=== PATIENT | male | born 1960 | race Hispanic/Latino ===

== ENCOUNTER 2023-02-24 14:42 | Emergency (ER) | payer MEDICAID ==
[~2023-02-24] VITALS: Ht 172.7 cm; Wt 99.8 kg
[2023-02-24 15:55] LABS: CRP QUANTITATIVE 59.2 mg/L (0.00-9.0); URIC ACID 4.8 mg/dL (2.6-7.2)
[2023-02-24 18:27] LABS: BASOPHILS # (AUTO) 0.08 K/uL (0.00-0.20); BASOPHILS % (AUTO) 0.9 % (0.0-5.0); EOSINOPHILS # (AUTO) 0.33 K/uL (0.00-0.70); EOSINOPHILS % (AUTO) 3.7 % (0.0-8.0); HEMATOCRIT 36.1 % (42-54); LYMPHOCYTES # (AUTO) 1.7 K/uL (1.0-4.8); MEAN CORPUSCULAR HGB CONC 35.2 g/dL (32.0-36.0); MEAN CORPUSCULAR VOLUME 90.9 fL (79-99); MONOCYTES # (AUTO) 1.2 K/uL (0.1-1.0); MONOCYTES % (AUTO) 13.9 % (3.0-13.0); NEUTROPHILS # (AUTO) 5.5 K/uL (1.8-7.7); NEUTROPHILS % (AUTO) 61.4 % (40.0-77.0); PLATELET COUNT (AUTO) 307 K/uL (130-400); RED BLOOD CELL COUNT(AUTO) 3.97 MIL/uL (4.50-6.20); RED CELL DISTRIBUTION WIDTH 11.7 % (11.0-15.5); WHITE BLOOD COUNT (AUTO) 8.9 K/uL (4.8-10.8)
[2023-02-24 19:47] LABS: CREATININE 0.5 mg/dL (0.5-1.5); POTASSIUM 4.2 mmol/L (3.5-5.1)
[2023-02-24 19:51] LABS: ALBUMIN 3.1 g/dL (3.5-5.0); BILIRUBIN,TOTAL 0.6 mg/dL (0.2-1.0); TOTAL PROTEIN, SERUM 8.5 g/dL (6.0-8.3)
[2023-02-24] MEDS ORDERED: PRED20TA3 PO (20:19)
[2023-02-24] MEDS ORDERED: PREDNISONE 20 MG TABLET PO ONE (20:30)
[2023-02-24] MEDS ORDERED: ONDANSETRON ODT 4MG TAB SL ONE (20:30)
[2023-02-24] MEDS ORDERED: HYDROCODONE/ACETAMINOPHEN 5/325 MG TAB PO ONE (20:30)
[2023-02-24] MEDS ORDERED: IBUPROFEN 600 MG TABLET PO ONE (20:30)
[2023-02-24 21:53] VITALS: BP 138/85; PULSE 88; RESP 16; O2SAT 98
== END 2023-02-24 21:59 | disposition home or self-care (01) ==
LOC: EDH 14:42
DX: M17.11 Unilateral primary osteoarthritis, right knee (principal); I10 Essential (primary) hypertension
CPT/HCPCS: 36415; 73562; 80053; 83605; 84550; 85025; 85651; 86140; 87040

== ENCOUNTER 2024-10-09 06:42 | Day surgery (SDC) | payer MEDICAID ==
[2024-10-09] VITALS (10 sets, daily range): BP systolic 121–160; BP diastolic 75–104; PULSE 83–90; RESP 15–18; TEMP 97.4–97.9
[~2024-10-09] VITALS: Ht 172.7 cm; Wt 99.8 kg
[~2024-10-09 06:42] MED LIST: 0.9%NACL 1000ML 1,000 ML IV ONE; PRED20TA3 PO
[2024-10-09] MEDS ORDERED: LOSA50TA64 PO (06:57)
[2024-10-09] MEDS ORDERED: proPOFol 10 MG/ML 20ML VIAL IV ONE (07:58)
[2024-10-09] MEDS ORDERED: ESOM40CA PO (09:01)
== END 2024-10-09 09:23 | disposition home or self-care (01) ==
LOC: ENDO 06:42 → DAH 06:42 → ENDO 09:23
PROVIDERS: ATTEND Internal Medicine Gastroenterology
DX: R19.5 Other fecal abnormalities (principal); K20.90 Esophagitis, unspecified without bleeding; K64.1 Second degree hemorrhoids; K64.4 Residual hemorrhoidal skin tags; K29.70 Gastritis, unspecified, without bleeding; K31.89 Other diseases of stomach and duodenum; K44.9 Diaphragmatic hernia without obstruction or gangrene; R10.13 Epigastric pain; R05.3 Chronic cough; I10 Essential (primary) hypertension; Z86.0100 Personal history of colon polyps, unspecified; G47.33 Obstructive sleep apnea (adult) (pediatric); Z99.89 Dependence on other enabling machines and devices; Z79.899 Other long term (current) drug therapy
CPT/HCPCS: 43239; 45378; 00813; J7030 ×2; J2704; A4215 ×2; A4223; A4222; A4221; A4663; A4606; J3490